=== PATIENT | male | born 1965 | race Caucasian/White ===

== ENCOUNTER → 2024-01-04 08:21 | Outpatient (REF) | payer BC, SELFPAY ==
--- NOTE | 2024-01-04 10:12 | CARDSERVDEF ---
Echocardiogram with Definity completed after protocol screening completed. Allergies verified.
Patent IV site: __22P RH___
IV site flushed with 0.9% NaCl pre and post administration.
Diluted bolus method utilized to enhance visualization of ventricular yang.
Total volume given: __2.0 + 2.5__ mL
under direction echosonographer and per policy
Patient tolerated all procedures well without complications.
site dcd at completion of test.
== END ==
LOC: RCS 08:21
PROVIDERS: ATTENDING PHYSICIAN Internal Medicine Cardiovascular Disease; FAMILY PHYSICIAN Internal Medicine
DX: I25.810 Atherosclerosis of coronary artery bypass graft(s) without angina pectoris (principal)
CPT/HCPCS: 93017; 93350; Q9957